=== PATIENT | male | born 1975 | race Caucasian/White ===

== ENCOUNTER 2021-02-22 16:07 | Inpatient (IN) | payer BC, SELFPAY ==
[2021-02-22] VITALS (10 sets, daily range): BP systolic 103–121; BP diastolic 59–77; PULSE 69–87; RESP 20–28; TEMP 36.6–39.4; O2SAT 93–97; BMI 33.3
--- NOTE | ~2021-02-22 | XR_ITS ---
EXAMINATION: XR chest 1V portable EXAM DATE: 02/22/2021 17:39 INDICATION: SOB, fever, chills, cough. TECHNIQUE: Frontal and lateral projections of the chest obtained and reviewed. There is no prior rose dy for comparison. FINDINGS: There is ill-defined multifocal airspace disease most consistent with pneumonia. [facility], recommend testing. No pneumothorax or pleural effusion. The card iomediastinal silhouette is prominent but magnified on this AP technique. IMPRESSION: Moderate amount of bilateral pneumonia, could be COVID 19. Reviewed, dictated and finalized at location A. RFACE CONTROL OFFICER
--- NOTE | ~2021-02-22 | US_ITS ---
EXAMINATION: US abdomen limited DATE: 02/23/2021 12:12 INDICATION: Abnormal liver function tests TECHNIQUE: Multiple grayscale and Doppler ultrasound images of the abdomen were obtained. COMPARISON: None available FINDINGS: The head and body of the pancreas are normal. The pancreatic tail is obscured by bowel gas. The liver demonstrates increased echogenicity, heterogenous echotexture, and decreased through trans mission. No surface nodularity. Normal hepatopetal flow in the main portal vein. The gallbladder is n ormal with no abnormal wall thickening, pericholecystic fluid or stones. The normal common bile duct measures 6 mm. There was no sonographic Ruiz sign. IMPRESSION: 1. Diffuse hepatic steatosis. Reviewed, dictated and finalized at location B. KEY DRIVER
[2021-02-22] MEDS: SODIUM CHLORIDE 0.9% IV 1,000 ML 150 ML IV CONT (17:06)
[2021-02-22 17:35] LABS: Basophils Percent Auto 0.4 % (0.2-1.2); Eosinophils Percent Auto 0.2 % (0-4.4); Hematocrit 41.7 % (42.0-52.0); Hemoglobin 14.8 g/dL (14.0-18.0); Immature Granulocyte Absolute 0.02 K/mm3 (0.00-0.031); Immature Granulocyte Percent A 0.4 % (0-0.5); Lymphocytes Absolute Auto 1.12 K/mm3 (0.9-3.2); Lymphocytes Percent Auto 20.3 % (18.3-44.2); Mean Corpuscular HGB Conc 35.5 g/dl (32-36); Mean Corpuscular Hemoglobin 32.5 pg (26-34); Mean Corpuscular Volume 91.4 fl (80-100); Mean Platelet Volume 9.8 fl (7.4-10.4); Monocytes Absolute Auto 0.4 K/mm3 (0.1-0.6); Monocytes Percent Auto 7.2 % (2.6-8.5); Neutrophils Percent Auto 71.5 % (45.5-73.1); Platelet Count Result 180 k/mm3 (150-375); Red Blood Count 4.56 M/mm3 (4.6-6.20); Red Cell Distribution Width 12.5 % (11.5-14.5); White Blood Count 5.5 K/mm3 (4.5-10.0)
[2021-02-22 17:47] LABS: Alanine Aminotransferase 102 U/L (4-50); Albumin Level 4.5 g/dL (3.5-5.1); Alkaline Phosphatase 113 U/L (38-126); Anion Gap 10 mmol/L (8-16); Aspartate Amino Transferase 139 U/L (17-59); Bilirubin,Total 0.7 mg/dL (0.2-1.3); Blood Urea Nitrogen 14 mg/dL (9-20); Calcium 8.8 mg/dL (8.4-10.2); Carbon Dioxide 27 mmol/L (22-30); Chloride 100 mmol/L (98-107); Estimated CRCL calculation 106 ml/min; Estimated Glomerular Filt Rate > 60; Glucose 123 mg/dL (65-110); Potassium 4.2 mmol/L (3.4-5.0); Sodium 137 mmol/L (137-145)
--- NOTE | 2021-02-22 18:40 | PC.NURSE ---
Informed Dr. Arias of patient temp of 102.0, he ordered IV Tylenol, he states he will be in the room to visit patient shortly
--- NOTE | 2021-02-22 19:05 | PC.NURSE ---
Informed Summer pt is using urinal at this time to get a urine collection
--- NOTE | 2021-02-22 19:16 | PC.NURSE ---
Pt states that it is okay to update his Zeynep on his condition, , updated Zeynep
--- NOTE | 2021-02-22 19:39 | PM.IMHP ---
H&P: HPI History of Present Illness Date/Time: 02/22/21 19:39 Chief Complaint: Shortness of breath Narrative: This is a 45-year-old male with known significant past medical history, the patient is fully vaccinated for COVID-19. He presented today to the emergency room due to worsening shortness of breath, chills, fevers, loss of taste and smell, poor appetite, productive cough of brownish greenish sputum, generalized malaise, muscles aches and pains, states that has not been able to eat since last . He denies any nausea, vomiting, diarrhea, abdominal pain. Preliminary workup has been significant for chest x-ray with diffuse infiltrates. A COVID-19 PCR is pending at this time. Patient has been admitted for further evaluation, management and treatment. Review of Systems Review of Systems: Chills, fever ,shortness of breath, productive cough, muscle aches and pains, poor appetite generalized malaise. Constitutional: Constitutional: Reports chills, Reports fever(s), Reports malaise, Reports night sweats, Reports poor appetite and Reports weakness Eyes: Eyes: Denies change in vision ENT: Denies dysphagia, Denies vertigo, Denies dizziness, Denies nasal congestion, Denies nasal discharge, Denies nasal obstruction and Denies odynophagia Cardiovascular: Cardiovascular: Denies pedal edema, Denies irregular heart rhythm, Denies claudication, Denies leg edema, Denies lightheadedness, Denies radiating jaw, neck or arm pain, Denies palpitations, Denies dyspnea on exertion and Denies orthopnea Respiratory: Respiratory: Reports chest congestion, Reports cough, Reports excessive phlegm production and Reports dyspnea Gastrointestinal: Gastrointestinal: Denies abdominal pain, Denies dyspepsia, Denies heartburn, Denies nausea and Denies hematemesis Genitourinary: Genitourinary: Reports no additional male genitourinary complaints and Reports as per HPI Musculoskeletal: Musculoskeletal: Reports myalgias Integumentary/Breasts: Skin/Breast: Denies rash and Denies wounds Neurologic: Denies vertigo, Denies dizziness, Denies focal weakness and Denies Sensory deficit (Neuro) Psychiatric: Psychiatric: Reports no additional psychiatric complaints and Reports as per HPI Endocrine: Endocrine: Reports no additional endocrine complaints and Reports as per HPI Hematologic/Lymphatic: Hematologic/Lymphatic: Reports no additional hematologic/lymphatic complaints and Reports as per HPI Allergic/Immunologic: Allergic/Immunologic: Reports no additional allergic/immunologic complaints and Reports as per HPI [facility] Social History Social History Smoking status: Never smoker Alcohol intake: unknown Substance use: never Spiritual care concerns: No Meds Home Medications and Allergies Home Medications Medication Instructions Recorded Confirmed Type No Home Medications 02/23/21 02/23/21 History Allergies Allergy/AdvReac Type Severity Reaction Status Date / Time Penicillins Allergy Unknown Verified 02/22/21 16:52 Vital Signs Vital Signs - 24 hr 02/22/21 16:16 02/22/21 16:21 02/22/21 16:23 Temperature 102.5 F H Pulse Rate 86 87 Respiratory Rate 20 20 Blood Pressure 112/68 112/68 Pulse Oximetry 94 95 96 02/22/21 18:40 Temperature 103 F H Pulse Rate Respiratory Rate Blood Pressure Pulse Oximetry Exam Narrative: L[facility] in [facility] Const: General: cooperative, comfortable, no acute distress, well developed, alert, awake and ill appearing Nutritional Appearance: average body habitus Orientation/consciousness: patient oriented x3 HENMT: Head: normal to inspection, normocephalic and atraumatic Ears: hearing grossly normal bilaterally General nose exam: Normal external nose present Face and sinus: normal facial exam Mouth: Yes Normal oral and palatal mucosa present Eyes: General: appearance normal, both eyes and all related structures Alignment and Position:
--- NOTE | 2021-02-22 19:40 | ED.GENADULT ---
HPI - General Adult General Chief complaint: Shortness of Breath/Dyspnea Stated complaint: weakness, covid symptoms Time Seen by Provider: 02/22/21 16:16 Source: patient Mode of arrival: ambulatory Limitations: no limitations History of Present Illness HPI narrative: 45-year-old with no major medical problems here with complaints of cough, fever, and loss of appetite and taste for last 4 to 5 days. Today states that he is feeling extremely weak and short of breath. He states his cough is productive mostly mucoid in nature. He denies any nausea or vomiting. He states that he has been vaccinated 4 months ago Onset (ago): day(s) (5) Severity: moderate Pain Consistency: constant Exacerbating factors: none Associated symptoms: cough, fever/chills, loss of appetite, malaise and weakness Treatments prior to arrival: none Related Data Allergies Allergy/AdvReac Type Severity Reaction Status Date / Time Penicillins Allergy Unknown Verified 02/22/21 16:52 Review of Systems Review of Systems: All systems reviewed & are unremarkable except as noted in HPI and below Constitutional: Constitutional: Reports body ache(s), Reports chills and Reports poor appetite Eyes: Eyes: Reports no additional eye complaints Cardiovascular: Cardiovascular: Reports no additional cardiovascular complaints Respiratory: Respiratory: Reports as per HPI Gastrointestinal: Gastrointestinal: Reports no additional gastrointestinal complaints Musculoskeletal: Musculoskeletal: Reports no additional musculoskeletal complaints Integumentary/Breasts: Skin/Breast: Reports system reviewed and no additional complaints, except as docu Exam Narrative: GENERAL: Well-appearing, well-nourished, febrile HEAD: Normocephalic, atraumatic. EYES: PERRLA and EOMI.. NECK: Supple. CHEST: Clear to auscultation. No respiratory distress. HEART: Regular rate and rhythm. No murmur heard. Normal peripheral pulses. ABDOMEN: Soft, nontender, nondistended, normal active bowel sounds. EXTREMITIES: Normal range of motion. No edema. SKIN: Warm, dry, no rash. NEURO: No focal deficits. Alert and oriented x3. PSYCH: Normal mood and affect. Course Course Emergency Course: Inform patient about his lab work, chest x-ray findings. We will admit him to the hospital start him on IV remdesivir. Discussed with the hospitalist agreed to admit the patient and agreed with the plan. Vital Signs Vital signs: Vital Signs Pulse Rate 86 02/22/21 16:16 Respiratory Rate 20 02/22/21 16:16 Blood Pressure 112/68 02/22/21 16:16 Pulse Oximetry 94 02/22/21 16:16 Temperature 39.4 C H 02/22/21 18:40 Pulse Rate 87 02/22/21 16:21 Respiratory Rate 20 02/22/21 16:21 Blood Pressure 112/68 02/22/21 16:21 Pulse Oximetry 96 02/22/21 16:23 Medical Decision Making Vital Signs Vital Signs: Vital Signs Pulse Rate 86 02/22/21 16:16 Respiratory Rate 20 02/22/21 16:16 Blood Pressure 112/68 02/22/21 16:16 Pulse Oximetry 94 02/22/21 16:16 Temperature 39.4 C H 02/22/21 18:40 Pulse Rate 87 02/22/21 16:21 Respiratory Rate 20 02/22/21 16:21 Blood Pressure 112/68 02/22/21 16:21 Pulse Oximetry 96 02/22/21 16:23 Lab Data Result diagrams: 02/22/21 17:29 02/22/21 17:29 Labs: Lab Results 02/22/21 02/22/21 02/22/21 Range/Units 17:29 17:29 19:22 WBC 5.5 (4.5-10.0) K/mm3 RBC 4.56 L (4.6-6.20) M/mm3 Hgb 14.8 (14.0-18.0) g/dL Hct 41.7 L (42.0-52.0) % MCV 91.4 (80-100) fl MCH 32.5 (26-34) pg MCHC 35.5 (32-36) g/dl RDW 12.5 (11.5-14.5) % Plt Count 180 (150-375) k/mm3 MPV 9.8 (7.4-10.4) fl Immature Gran % (Auto) 0.4 (0-0.5) % Neut % (Auto) 71.5 (45.5-73.1) % Lymph % (Auto) 20.3 (18.3-44.2) % Lewis % (Auto) 7.2 (2.6-8.5) % Eos % (Auto) 0.2 (0-4.4) % Baso % (Auto) 0.4 (0.2-1.2) % Lymph # (Auto) 1.12 (0.9-3.2) K/mm3 Lewis # (Auto) 0.4
[2021-02-22 19:50] LABS: Add Urine Microscopic? YES; Appearance Urine Cloudy (Clear); Bacteria Urine Trace /hpf; Bilirubin Urine Negative (Negative); Blood Urine Negative (Negative); Color Urine Yellow (Yellow); Glucose Urine UA Negative (Negative); Ketones Urine Trace mg/dL (Negative); Leukocyte Esterase Ur 1+ LEU/UL (Negative); Mucus Urine Rare /lpf; Nitrate Urine Negative (Negative); Protein Urine 1+ mg/dL (Negative); RBC Urine 0-2 /hpf (0-2); Specific Grav Ur 1.024 (1.001-1.035); Squamous Epithelial Cell Urine Rare /hpf (Few)
[2021-02-22 20:14] LABS: EDCOVIDSCREEN Negative (Negative)
[2021-02-22 20:20] LABS: INR 1.1; Prothrombin Time 13.7 Seconds (11.1-14.7)
[2021-02-22 20:36] LABS: Alanine Aminotransferase 91 U/L (4-50); Estimated CRCL calculation 117 ml/min; Estimated Glomerular Filt Rate > 60
--- NOTE | 2021-02-22 21:56 | PC.NURSE ---
Unit unable to take report at this time. Unit to call ED back to take report.
--- NOTE | 2021-02-22 23:47 | PC.NURSE ---
Called Dr. Villalobos at [phone] no answer. Called Marisa Govea and spoke with her about clarifications needed on patient. Marisa Govea said she will relay the message to Dr. Villalobos. Waiting for Dr. Villalobos to call unit back.
[2021-02-23] VITALS (7 sets, daily range): BP systolic 104–140; BP diastolic 52–69; PULSE 54–76; RESP 18–22; TEMP 36.1–36.9; O2SAT 95–98; BMI 33.5
[2021-02-23] MEDS: ALBUTEROL SULFATE (*SP) INHALER 2 PUFF INHALATION ×6 (00:12→20:27)
[2021-02-23] MEDS: ACETAMINOPHEN 325 MG TABLET 650 MG PO ×2 (00:29→20:55)
[2021-02-23] MEDS: ENOXAPARIN 40 MG/0.4 ML SYRINGE SUB-Q ×3 (00:32→20:47)
[2021-02-23] MEDS: REMDESIVIR 200 MG/NS 250 ML 200 MG/250 ML BAG 250 MG IVPB (00:45)
[2021-02-23 02:13] LABS: Basophils Percent Auto 0.2 % (0.2-1.2); Hemoglobin 15.2 g/dL (14.0-18.0); Immature Granulocyte Absolute 0.02 K/mm3 (0.00-0.031); Immature Granulocyte Percent A 0.3 % (0-0.5); Lymphocytes Absolute Auto 1.02 K/mm3 (0.9-3.2); Lymphocytes Percent Auto 17.8 % (18.3-44.2); Mean Corpuscular HGB Conc 35.3 g/dl (32-36); Mean Corpuscular Hemoglobin 32.5 pg (26-34); Mean Corpuscular Volume 92.1 fl (80-100); Mean Platelet Volume 9.7 fl (7.4-10.4); Monocytes Absolute Auto 0.3 K/mm3 (0.1-0.6); Monocytes Percent Auto 5.1 % (2.6-8.5); Neutrophils Absolute Auto 4.4 K/mm3 (1.3-6.7); Neutrophils Percent Auto 76.6 % (45.5-73.1); Platelet Count Result 178 k/mm3 (150-375); Red Blood Count 4.67 M/mm3 (4.6-6.20); Red Cell Distribution Width 12.5 % (11.5-14.5); White Blood Count 5.7 K/mm3 (4.5-10.0)
--- NOTE | 2021-02-23 02:17 | PC.NURSE ---
This patient, Jeevan Pena, was admitted to 3 [facility] Surg Room 319-01. Patient/family oriented to hospital policies and general routines including ID bracelet, bed and alarms, visiting hours, pain management, procedures, bathroom and other care routines, personal items, smoking policy, room service/diet, and visiting hours. Information on how to activate the Rapid Response Team has been discussed. Patient/Family are encouraged to report perceived risks to care and to ask questions if they do not understand what they are told or what they should do.
[2021-02-23 02:23] LABS: INR 1.1; Prothrombin Time 13.9 Seconds (11.1-14.7)
[2021-02-23 02:33] LABS: Alanine Aminotransferase 91 U/L (4-50); Albumin Level 4.4 g/dL (3.5-5.1); Alkaline Phosphatase 110 U/L (38-126); Anion Gap 12 mmol/L (8-16); Aspartate Amino Transferase 118 U/L (17-59); Bilirubin,Total 0.8 mg/dL (0.2-1.3); Blood Urea Nitrogen 14 mg/dL (9-20); Calcium 8.8 mg/dL (8.4-10.2); Carbon Dioxide 25 mmol/L (22-30); Chloride 102 mmol/L (98-107); Estimated CRCL calculation 131 ml/min; Estimated Glomerular Filt Rate > 60; Glucose 191 mg/dL (65-110); Potassium 4.1 mmol/L (3.4-5.0); Sodium 139 mmol/L (137-145)
[2021-02-23 03:13] LABS: HIV 1/2 Ab P24 Ag Result Negative (Negative)
[2021-02-23 03:32] LABS: Hepatitis B Surface Anti Res Negative; Hepatitis C Virus Antibody Negative (Negative)
--- NOTE | 2021-02-23 06:25 | PC.NURSE ---
Called Dr Villalobos again and spoke to her regarding clarifications with covid plasma. Called lab to prepare covid plasma at 0400. Lab stated it would be awhile.
--- NOTE | 2021-02-23 10:14 | PC.NURSE ---
Spoke with Ryanne provider for patient, holding covid plasma infusion until covid test results. Provide to meet with pt and discuss covid plasma infusion in more detail and answer questions and concerns.
--- NOTE | 2021-02-23 13:00 | PM.IMPN ---
Progress Note: A&P Assessment and Plan (1) Acute respiratory failure with hypoxia: Code(s): J96.01 - Acute respiratory failure with hypoxia Status: Acute Assessment and Plan: Hypoxic on presentation requiring supplemental oxygen. Currently requiring 3 L per nasal cannula. Continue supplemental O2 as needed with goal sats 92% or above Likely secondary to COVID-19. Plan as below (2) Person under investigation for COVID-19: Code(s): Z20.822 - Contact with and (suspected) exposure to COVID-19 Status: Acute Assessment and Plan: CXR shows moderate amount of bilateral pneumonia, consistent with COVID-19. He was febrile up to 103?. COVID-19 test pending. Continue isolation precautions while awaiting results He has been started on dexamethasone and remdesivir. Continue at this time Convalescent plasma was ordered, however will wait for results prior to administration. Given relatively stable oxygen requirements, this can be deferred at this time. Supplemental O2 as needed Supportive care to include bronchodilators, expectorants, antipyretics, incentive spirometry Trend inflammatory markers He did complete Pier[employer] Pier[employer] vaccination approximately 3 months ago. Bacterial pneumonia is considered, the clinical picture more consistent with viral etiology. Would consider addition of antibiotic therapy pending results of COVID-19 test. Will also check for influenza (3) Elevated LFTs: Code(s): R79.89 - Other specified abnormal findings of blood chemistry Status: Acute Assessment and Plan: LFTs slightly elevated on presentation with slight improvement today Likely in part due to viral illness Abdominal ultrasound demonstrates diffuse hepatic steatosis. Lifestyle changes. Subjective Date/time seen: 02/23/21 13:00 Interval history: Date of service: 02/23/2021 Jeevan Pena is a healthy 45-year-old male who denies any past medical history who is seen in follow-up for suspected COVID-19. He is feeling very poorly today. Any movements cause him to have a coughing spell. He is not able to walk from the bed to the chair without becoming significantly short of breath and having a coughing fit. He states that if he lays on his right side his cough will diminish somewhat but he cannot lay flat on his back. He is occasionally having scant amount of yellow-green sputum. He has all over body aches. He has poor appetite and reports he has not had much to eat over the past week. He endorses chills and sweats. He also has a headache. Denies dizziness or lightheadedness. Denies dysuria or hematuria. Denies chest pain or palpitations. Review of Systems Review of Systems: All systems reviewed & are unremarkable except as noted in HPI and below Exam Narrative: Mr. Pena is a well-nourished, well-appearing 45-year-old male who is lying on his right side. He appears comfortable and is in NARD. Neuro: awake, alert and oriented x4, speech clear, no focal neuro deficits noted HEENMT: normocephalic, atraumatic, EOMI, sclerae anicteric Neck: supple, no lymphadenopathy Respiratory: Diminished breath sounds bilaterally, persistent hacking cough with inspiration Cardio: regular rate, regular rhythm with S1-S2 Abdomen: nondistended, normoactive bowel sounds, soft, slightly tender to palpation in periumbilical region Extremities: no edema, erythema, or tenderness to palpation, DP pulses 2+ bilaterally Skin: no rashes or lesions, warm and dry Psych: appropriate mood and affect, judgment and insight intact Objective Data Vital Signs Vital Signs: Vital Signs - 24 hr 02/22/21 16:16 02/22/21 16:21 02/22/21 16:23 Temperature 102.5 F H Pulse Rate 86 87 Respiratory Rate 20 20 Blood Pressure 112/68 112/68 Pulse Oximetry 94 95 96 02/22/21 18:40 02/22/21 19:24 02/22/21 20:42 Temperature 103 F H Pulse Rate 85 76 Respiratory Rate 24 H 28 H Blood Pressure
[2021-02-23] MEDS: BENZONATATE 100 MG CAPSULE PO (16:04)
[2021-02-23 17:50] LABS: SARS-CoV-2 RNA PCR Positive
[2021-02-23] MEDS: guaiFENesin 12 HR 600 MG TABCR PO (20:47)
[2021-02-23] MEDS: REMDESIVIR 100 MG/NS 250 ML 100 MG/250 ML BAG 250 MG IVPB (20:56)
[2021-02-24] VITALS (17 sets, daily range): BP systolic 90–122; BP diastolic 51–73; PULSE 52–118; RESP 14–20; TEMP 36.2–37; O2SAT 95–99
[2021-02-24] MEDS: ALBUTEROL SULFATE (*SP) INHALER 2 PUFF INHALATION ×6 (00:06→20:23)
[2021-02-24] MEDS: SODIUM CHLORIDE 0.9% IV 250 ML 30 ML IV CONT (06:00)
[2021-02-24] MEDS: TUBING, BLOOD PLUM PUMP TUBING 1 EACH XX (06:00)
[2021-02-24 06:23] LABS: Hematocrit 41.3 % (42.0-52.0); Hemoglobin 14.3 g/dL (14.0-18.0); Mean Corpuscular HGB Conc 34.6 g/dl (32-36); Mean Corpuscular Hemoglobin 32.6 pg (26-34); Mean Corpuscular Volume 94.3 fl (80-100); Mean Platelet Volume 10.4 fl (7.4-10.4); Platelet Count Result 195 k/mm3 (150-375); Red Blood Count 4.38 M/mm3 (4.6-6.20); Red Cell Distribution Width 12.2 % (11.5-14.5); White Blood Count 9.2 K/mm3 (4.5-10.0)
[2021-02-24 06:48] LABS: Alanine Aminotransferase 64 U/L (4-50); Albumin Level 4.1 g/dL (3.5-5.1); Alkaline Phosphatase 88 U/L (38-126); Anion Gap 10 mmol/L (8-16); Aspartate Amino Transferase 69 U/L (17-59); Bilirubin,Total 0.6 mg/dL (0.2-1.3); Blood Urea Nitrogen 18 mg/dL (9-20); CRP 4.1 mg/dL (<1.0); Calcium 8.8 mg/dL (8.4-10.2); Carbon Dioxide 26 mmol/L (22-30); Chloride 106 mmol/L (98-107); Estimated CRCL calculation 131 ml/min; Estimated Glomerular Filt Rate > 60; Glucose 157 mg/dL (65-110); Lactate Dehydrogenase 529 U/L (313-618); Potassium 4.8 mmol/L (3.4-5.0); Sodium 142 mmol/L (137-145)
[2021-02-24 08:12] LABS: INR 1.1; Prothrombin Time 13.7 Seconds (11.1-14.7)
[2021-02-24] MEDS: guaiFENesin 12 HR 600 MG TABCR PO ×2 (09:00→21:45)
[2021-02-24] MEDS: ENOXAPARIN 40 MG/0.4 ML SYRINGE SUB-Q ×2 (09:00→21:45)
[2021-02-24] MEDS: BENZONATATE 100 MG CAPSULE PO ×2 (09:00→12:55)
--- NOTE | 2021-02-24 13:27 | PM.IMPN ---
Progress Note: A&P Assessment and Plan (1) Acute respiratory failure due to COVID-19: Code(s): U07.1 - COVID-19; J96.00 - Acute respiratory failure, unspecified whether with hypoxia or hypercapnia Status: Acute Assessment and Plan: Positive COVID test on 02/22/2021. CXR showed bilateral pneumonia. He was hypoxic on presentation requiring up to 3 L supplemental oxygen. Febrile on presentation up to 103?, fever resolved. Currently maintaining adequate O2 sats on room air. Continue supplemental O2 as needed with goal sats 92% or above. Continue dexamethasone and remdesivir. Received convalescent plasma this morning. Supportive care to include bronchodilators, expectorants, antipyretics, incentive spirometry, cornet Trend inflammatory markers Continue isolation precautions He did complete Piero & Piero vaccine approximately 3 months ago. (2) Elevated LFTs: Code(s): R79.89 - Other specified abnormal findings of blood chemistry Status: Acute Assessment and Plan: LFTs slightly elevated on presentation with continued improvement. Most likely secondary to viral illness. Hepatitis screening negative. Abdominal ultrasound showed diffuse hepatic steatosis and life changes should be implemented. Continue to monitor LFT while on remdesivir. Subjective Date/time seen: 02/24/21 13:27 Interval history: Date of service: 02/24/2021 Jeevan Pena is a healthy 45-year-old male who denies any past medical history who is seen in follow-up for COVID-19. He is feeling about the same today, maybe slightly better. He still has persistent cough but he states if he lays flat it improves. He has dyspnea on exertion and today when getting up to walk to the bathroom it triggered a significant coughing spell. He notes that even trying to talk will cause him to cough. He denies sputum production. He has chest wall and abdominal soreness as a result of his cough. He also has all over body aches. His appetite seems to be slowly improving. He had nausea this morning but no vomiting. N/V resolved now and he was able to tolerate his breakfast. He endorses sweats but denies fever or chills. Review of Systems Review of Systems: All systems reviewed & are unremarkable except as noted in HPI and below Exam Narrative: Mr. Pena is a well-nourished, well-appearing 45-year-old male who is lying on his left side. He appears comfortable and is in NARD. Neuro: awake, alert and oriented x4, speech clear, no focal neuro deficits noted HEENMT: normocephalic, atraumatic, EOMI, sclerae anicteric Neck: supple, no lymphadenopathy Respiratory: Diminished breath sounds bilaterally, persistent barking cough Cardio: regular rate, regular rhythm with S1-S2 Abdomen: nondistended, normoactive bowel sounds, soft, nontender to palpation Extremities: no edema, erythema, or tenderness to palpation, DP pulses 2+ bilaterally Skin: no rashes or lesions, warm and dry Psych: appropriate mood and affect, judgment and insight intact Objective Data Vital Signs Vital Signs: Vital Signs - 24 hr 02/23/21 16:00 02/23/21 20:00 02/23/21 20:32 Temperature 97.4 F L 98.0 F Pulse Rate 76 66 Respiratory Rate 18 18 Blood Pressure 140/67 117/56 L Pulse Oximetry 97 96 95 02/24/21 00:00 02/24/21 04:00 02/24/21 06:00 Temperature 97.2 F L 97.2 F L 98.1 F Pulse Rate 59 L 53 L 60 Respiratory Rate 18 18 20 Blood Pressure 100/56 L 99/66 L 90/70 L Pulse Oximetry 97 95 97 02/24/21 06:19 02/24/21 07:16 02/24/21 07:19 Temperature 98.2 F 97.8 F 97.9 F Pulse Rate 57 L 55 L 52 L Respiratory Rate 14 14 20 Blood Pressure 106/59 L 105/68 100/59 L Pulse Oximetry 97 98 95 02/24/21 08:00 02/24/21 08:19 02/24/21 08:33 Temperature 98.1 F Pulse Rate 54 L 56 L Respiratory Rate 16 20 Blood Pressure 112/57 L Pulse Oximetry 98 99 96 02/24/21 08:41 02/24/21 08:52 02/24/21 12:23 Temperature 98.4 F 98.0 F 97.3 F L Pulse Rate 56
[2021-02-24] MEDS: REMDESIVIR 100 MG/NS 250 ML 100 MG/250 ML BAG 250 MG IVPB (21:45)
[2021-02-24] MEDS: FAMOTIDINE 20 MG TABLET PO (21:45)
[2021-02-24 22:00] LABS: Glucose Point of Care 237 mg/dl (65-105)
[2021-02-25] VITALS (8 sets, daily range): BP systolic 102–130; BP diastolic 56–73; PULSE 47–65; RESP 15–20; TEMP 35.8–36.9; O2SAT 96–98
[2021-02-25] MEDS: ALBUTEROL SULFATE (*SP) INHALER 2 PUFF INHALATION ×6 (04:01→20:11)
[2021-02-25 06:34] LABS: Hematocrit 40.8 % (42.0-52.0); Hemoglobin 14.3 g/dL (14.0-18.0); Mean Corpuscular Hemoglobin 33.3 pg (26-34); Mean Corpuscular Volume 94.9 fl (80-100); Mean Platelet Volume 10.6 fl (7.4-10.4); Platelet Count Result 227 k/mm3 (150-375); Red Cell Distribution Width 12.5 % (11.5-14.5); White Blood Count 8.9 K/mm3 (4.5-10.0)
[2021-02-25 06:45] LABS: Alanine Aminotransferase 52 U/L (4-50); Albumin Level 4.1 g/dL (3.5-5.1); Alkaline Phosphatase 88 U/L (38-126); Anion Gap 9 mmol/L (8-16); Aspartate Amino Transferase 49 U/L (17-59); Bilirubin,Total 0.5 mg/dL (0.2-1.3); Blood Urea Nitrogen 16 mg/dL (9-20); CRP 1.7 mg/dL (<1.0); Calcium 8.7 mg/dL (8.4-10.2); Carbon Dioxide 26 mmol/L (22-30); Chloride 108 mmol/L (98-107); Estimated CRCL calculation 148 ml/min; Estimated Glomerular Filt Rate > 60; Glucose 152 mg/dL (65-110); Potassium 4.2 mmol/L (3.4-5.0); Sodium 143 mmol/L (137-145)
[2021-02-25 06:49] LABS: Alanine Aminotransferase 51 U/L (4-50); Estimated CRCL calculation 148 ml/min; Estimated Glomerular Filt Rate > 60
[2021-02-25 06:53] LABS: INR 1.2; Prothrombin Time 14.6 Seconds (11.1-14.7)
[2021-02-25] MEDS: ENOXAPARIN 40 MG/0.4 ML SYRINGE SUB-Q ×2 (08:50→20:07)
[2021-02-25] MEDS: guaiFENesin 12 HR 600 MG TABCR PO ×2 (08:51→20:07)
[2021-02-25] MEDS: FAMOTIDINE 20 MG TABLET PO ×2 (08:51→20:07)
--- NOTE | 2021-02-25 13:21 | PM.IMPN ---
Progress Note: A&P Assessment and Plan (1) Acute respiratory failure due to COVID-19: Code(s): U07.1 - COVID-19; J96.00 - Acute respiratory failure, unspecified whether with hypoxia or hypercapnia Status: Acute Assessment and Plan: Positive COVID test on 02/22/2021. CXR showed bilateral pneumonia. He was hypoxic on presentation requiring up to 3 L supplemental oxygen. Febrile on presentation up to 103?, fever resolved. Currently maintaining adequate O2 sats on room air. Supplemental O2 as needed with goal sats 92% or above. Continue dexamethasone and remdesivir (day #3) Received convalescent plasma 02/24/21 Supportive care to include bronchodilators, expectorants, antipyretics, incentive spirometry, cornet Trend inflammatory markers Continue isolation precautions He did complete Piero & Piero vaccine approximately 3 months ago. (2) Elevated LFTs: Code(s): R79.89 - Other specified abnormal findings of blood chemistry Status: Acute Assessment and Plan: LFTs slightly elevated on presentation with continued improvement. Most likely secondary to viral illness. Hepatitis screening negative. Abdominal ultrasound showed diffuse hepatic steatosis and life changes should be implemented. Continue to monitor LFT while on remdesivir. (3) Constipation: Code(s): K59.00 - Constipation, unspecified Status: Acute Assessment and Plan: Reports no bowel movement in 6 days Initiate MiraLax and Colace. Consider Dulcolax suppository if still not able to have a bowel movement with above therapy Subjective Date/time seen: 02/25/21 13:21 Interval history: Date of service: 02/25/2021 Jeevan Pena is a healthy 45-year-old male who denies any past medical history who is seen in follow-up for COVID-19. Still feeling quite poorly. He is still coughing frequently. He had a major coughing spell when walking to the bathroom today, he states sitting up, talking, or moving at all will cause him to cough forcefully. He also endorses shortness of breath and dyspnea on exertion. Also endorses some chest tightness when he coughs. He feels weak all over, especially in his calves. He endorses a left lower quadrant discomfort that he describes as a dull ache. He has not had a bowel movement in 6 days. He denies bloating or cramping. He has been starting to eat a little better. Denies nausea or vomiting. Denies overt fevers or chills but notes feeling very cold and also having sweats. The patient is from [place]. 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 He is concerned about how he will get back. He does not feel strong enough to make the drive. He cannot fly, and would not be able to do so due to his need for quarantine. Review of Systems Review of Systems: All systems reviewed & are unremarkable except as noted in HPI and below Exam Narrative: Mr. Pena is a well-nourished, well-appearing 45-year-old male who is lying supine in bed. He appears comfortable and is in NARD. Neuro: awake, alert and oriented x4, speech clear, no focal neuro deficits noted HEENMT: normocephalic, atraumatic, EOMI, sclerae anicteric Neck: supple, no lymphadenopathy Respiratory: Diminished breath sounds bilaterally, cough with sitting up and with inspirations Cardio: regular rate, regular rhythm with S1-S2 Abdomen: nondistended, normoactive bowel sounds, soft, nontender to palpation Extremities: no edema, erythema, or tenderness to palpation, DP pulses 2+ bilaterally Skin: no rashes or lesions, warm and damp Psych: appropriate mood and affect, judgment and insight intact Objective Data Vital Signs Vital Signs: Vital Signs - 24 hr 02/24/21 15:45 02/24/21 17:04 02/24/21 20:00 Temperature 97.6 F 98.6 F Pulse Rate 79 63 118 H Respiratory Rate 18 18 20 Blood Pressure 122/73 116/64 Pulse Oximetry 95 97 02/24/21 21:18 02/25/21 00:01 02/25/21
[2021-02-25] MEDS: DOCUSATE SODIUM 100 MG CAPSULE PO (20:07)
[2021-02-25] MEDS: REMDESIVIR 100 MG/NS 250 ML 100 MG/250 ML BAG 250 MG IVPB (21:59)
[2021-02-26] VITALS (7 sets, daily range): BP systolic 108–122; BP diastolic 57–78; PULSE 50–92; RESP 18–20; TEMP 35.6–36.3; O2SAT 96–99
[2021-02-26] MEDS: ALBUTEROL SULFATE (*SP) INHALER 2 PUFF INHALATION ×6 (04:00→20:10)
[2021-02-26 06:35] LABS: Alanine Aminotransferase 58 U/L (4-50); Albumin Level 4.3 g/dL (3.5-5.1); Alkaline Phosphatase 90 U/L (38-126); Anion Gap 11 mmol/L (8-16); Aspartate Amino Transferase 53 U/L (17-59); Bilirubin,Total 0.6 mg/dL (0.2-1.3); Blood Urea Nitrogen 18 mg/dL (9-20); Calcium 9.1 mg/dL (8.4-10.2); Carbon Dioxide 27 mmol/L (22-30); Chloride 104 mmol/L (98-107); Estimated CRCL calculation 131 ml/min; Estimated Glomerular Filt Rate > 60; Glucose 183 mg/dL (65-110); Potassium 4.7 mmol/L (3.4-5.0); Sodium 142 mmol/L (137-145)
[2021-02-26 07:02] LABS: Hematocrit 42.4 % (42.0-52.0); Hemoglobin 14.5 g/dL (14.0-18.0); Mean Corpuscular HGB Conc 34.2 g/dl (32-36); Mean Corpuscular Volume 96.4 fl (80-100); Mean Platelet Volume 10.7 fl (7.4-10.4); Platelet Count Result 247 k/mm3 (150-375); Red Cell Distribution Width 12.5 % (11.5-14.5); White Blood Count 9.8 K/mm3 (4.5-10.0)
[2021-02-26 07:46] LABS: INR 1.1; Prothrombin Time 14.3 Seconds (11.1-14.7)
[2021-02-26] MEDS: ENOXAPARIN 40 MG/0.4 ML SYRINGE SUB-Q ×2 (08:57→20:45)
[2021-02-26] MEDS: FAMOTIDINE 20 MG TABLET PO (08:58)
[2021-02-26] MEDS: guaiFENesin 12 HR 600 MG TABCR PO ×2 (08:58→20:45)
--- NOTE | 2021-02-26 12:22 | PM.IMPN ---
Progress Note: A&P Assessment and Plan (1) Acute respiratory failure due to COVID-19: Code(s): U07.1 - COVID-19; J96.00 - Acute respiratory failure, unspecified whether with hypoxia or hypercapnia Status: Acute Assessment and Plan: Positive COVID test on 02/22/2021. CXR showed bilateral pneumonia. He was hypoxic on presentation requiring up to 3 L supplemental oxygen. Febrile on presentation up to 103?, fever resolved. Currently maintaining adequate O2 sats on room air. Supplemental O2 as needed with goal sats 92% or above. Continue dexamethasone and remdesivir (day #4) Received convalescent plasma 02/24/21 Supportive care to include bronchodilators, expectorants, antipyretics, incentive spirometry, cornet Trend inflammatory markers Continue isolation precautions He did complete Piero & Piero vaccine approximately 3 months ago. Hopeful discharge tomorrow if continued improvement. 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 Most likely secondary to viral illness. Hepatitis screening negative. Abdominal ultrasound showed diffuse hepatic steatosis and life changes should be implemented. Continue to monitor LFT while on remdesivir. Resolving. (3) Constipation: Code(s): K59.00 - Constipation, unspecified Status: Acute Assessment and Plan: Resolved. He had a bowel movement yesterday. Continue MiraLax and Colace as needed. Subjective Date/time seen: 02/26/21 12:22 Interval history: Date of service: 02/26/2021 Jeevan Pena is a healthy 45-year-old male who denies any past medical history who is seen in follow-up for COVID-19. Starting to feel a bit better today. He is coughing less frequently. He has been able to walk around his room with less dyspnea on exertion and not coughing as much. Still having difficulty taking deep breaths. Still coughs deep inspiration and with certain movements. Cough is nonproductive. His body aches have improved slightly. He still feels overall weak. His appetite is improving. He had a bowel movement yesterday and notes that his abdominal discomfort was alleviated with this. Previously endorsed chills but notes this has resolved today. Denies nausea, vomiting, fever, dizziness, lightheadedness. No chest pain. No palpitations. I did talk to him about his plans for discharge given that he is starting to feel somewhat better. He states that he plans to drive from here to [place], [place] where he can stop and see how he is feeling. He states that if he is still feeling poorly, he may be able to see a company doctor in the area but needs to discuss this with his employer first. He also notes that he could stop ear and get a hotel and take some time to recover if required. He is still nervous for how he will manage his symptoms during his travels. He is certain that he would not be able to make the trip back to [place] at this time. Review of Systems Review of Systems: All systems reviewed & are unremarkable except as noted in HPI and below Exam Narrative: Mr. Pena is a well-nourished, well-appearing 45-year-old male who is lying supine in bed. He appears comfortable and is in NARD. Neuro: awake, alert and oriented x4, speech clear, no focal neuro deficits noted HEENMT: normocephalic, atraumatic, EOMI, sclerae anicteric Neck: supple, no lymphadenopathy Respiratory: Diminished breath sounds bilaterally, barking cough with deep with inspirations Cardio: regular rate, regular rhythm with S1-S2 Abdomen: nondistended, normoactive bowel sounds, soft,
[2021-02-26] MEDS: REMDESIVIR 100 MG/NS 250 ML 100 MG/250 ML BAG 250 MG IVPB (20:45)
[2021-02-27] VITALS (8 sets, daily range): BP systolic 103–110; BP diastolic 54–71; PULSE 43–96; RESP 16–20; TEMP 35.5–36.1; O2SAT 93–98
[2021-02-27] MEDS: ALBUTEROL SULFATE (*SP) INHALER 2 PUFF INHALATION ×4 (00:36→11:45)
[2021-02-27 06:56] LABS: Alanine Aminotransferase 65 U/L (4-50); Albumin Level 4.2 g/dL (3.5-5.1); Alkaline Phosphatase 90 U/L (38-126); Anion Gap 12 mmol/L (8-16); Aspartate Amino Transferase 56 U/L (17-59); Bilirubin,Total 0.7 mg/dL (0.2-1.3); Blood Urea Nitrogen 19 mg/dL (9-20); Calcium 9.1 mg/dL (8.4-10.2); Carbon Dioxide 26 mmol/L (22-30); Chloride 102 mmol/L (98-107); Estimated CRCL calculation 131 ml/min; Estimated Glomerular Filt Rate > 60; Glucose 216 mg/dL (65-110); Potassium 4.6 mmol/L (3.4-5.0); Sodium 140 mmol/L (137-145)
[2021-02-27] MEDS: ENOXAPARIN 40 MG/0.4 ML SYRINGE SUB-Q (09:40)
[2021-02-27] MEDS: FAMOTIDINE 20 MG TABLET PO (09:40)
[2021-02-27] MEDS: guaiFENesin 12 HR 600 MG TABCR PO (09:40)
--- NOTE | 2021-02-27 11:58 | HOMEO2EVAL ---
Evaluation was performed at [facility] Home Oxygen Evaluation RC: Home Oxygen (O2) Evaluation Start: 02/26/21 12:34 Freq: ONCE Status: Active Protocol: RPE Activity Type Activity Date Activity User E-Sign Co-Sign Detail Recorded Client Recorded Date Recorded By Document 02/27/21 11:30 KRM [id number] 02/27/21 11:57 KRM Document 02/27/21 11:32 KRM [email or web address] 02/27/21 11:57 KRM Document 02/27/21 11:35 KRM [email or web address] 02/27/21 11:57 KRM 02/27/21 02/27/21 02/27/21 11:30 11:32 11:35 Home O2 Evaluation Test Phase Resting Exercise Exercise Oxygen Delivery Room Air Room Air Room Air Pulse Oximetry (90-100 %) 93 96 95 Pulse Rate (60-100 beats/min) 70 96 77 Activity Tolerance Good Good Home Oxygen Evaluation Comments NO HOME OXYGEN NEEDED. Treatment Charges O2 Evaluation - Inpatient
--- NOTE | 2021-02-27 14:31 | PM.DS ---
DS: Admitting Diagnosis Discharge Date 02/27/2021 Admitting Diagnosis COVID-19 pneumonia DS: Discharge Diagnosis Discharge Diagnosis (1) Acute respiratory failure due to COVID-19: Code(s): U07.1 - COVID-19; J96.00 - Acute respiratory failure, unspecified whether with hypoxia or hypercapnia Status: Acute Assessment and Plan: Positive COVID test on 02/22/2021. CXR showed bilateral pneumonia. He was hypoxic on presentation requiring up to 3 L supplemental oxygen. Febrile on presentation up to 103?, fever resolved. Supplemental oxygen was able to be weaned and he was maintaining adequate O2 sats on room air. Home O2 eval performed on 02/27/2021 to ensure he did not need supplemental oxygen with exertion; this was completed and demonstrated no need for supplemental oxygen with rest or ambulation. He completed 5 days of IV remdesivir and dexamethasone. Received convalescent plasma 02/24/21 Supportive care provided including bronchodilators, expectorants, antipyretics, incentive spirometry, cornet He did complete Piero & Piero vaccine approximately 3 months ago. (2) Elevated LFTs: Code(s): R79.89 - Other specified abnormal findings of blood chemistry Status: Acute Assessment and Plan: LFTs slightly elevated on presentation with continued improvement. Most likely secondary to viral illness. Hepatitis screening negative. Abdominal ultrasound showed diffuse hepatic steatosis and lifestyle changes should be implemented. ALT remained only mildly elevated. (3) Constipation: Code(s): K59.00 - Constipation, unspecified Status: Acute Assessment and Plan: Resolved. He had a bowel movement on 02/25. Continue MiraLax and Colace as needed. DS: Summary Hospital Course Hospital Course: Date of admission: 02/22/2021 Date of discharge: 02/27/2021 efrain Pena is a healthy 45-year-old male who denies any past medical history presented to the emergency department on 02/22/2021 with complaints of worsening shortness of breath, chills, fever, and loss of taste and smell. On presentation to the emergency department, he was noted to be febrile at 39.4? C additional vital signs stable, CBC and BMP unremarkable, and CXR showed moderate amount of bilateral pneumonia consistent with COVID-19. He was admitted to the hospitalist service for further evaluation and management. Please see above for further details. He was treated him with IV dexamethasone and Remdesivir given his hypoxia. His symptoms improved significantly and hypoxia resolved. Given lack of need for supplemental oxygen and symptomatic improvement, he was determined to no longer require inpatient care and was felt to be stable for discharge. Of note, he lives in [place] and was traveling to this area for work. 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 There was some concern about how he would return back home. He was unable to have anyone from his company worm picker his truck. Following discussions between myself, the patient, and care coordination, it was determined that he would take a cab back to his truck. He will then either stay in his truck at the rest stop which is equipped for overnight stays or check into a hotel, the latter being the preferable option that I encouraged. He is to avoid driving any long distances or driving for work for the next week. He felt comfortable with these plans and with the improvement of his symptoms, he felt comfortable with plans for discharge. I educated him on measures to help slow the spread of COVID-19. He was educated on worrisome signs and symptoms for which to return and on his medications. He knows that if his symptoms worsen, he should seek care immediately in the local area. He needs to establish with a primary care provider on his return to [place]. Given his overall improvement, he was determined to no longer require inpatient care and he was discharged i
== END 2021-02-27 15:19 | disposition home or self-care (01) | DRG 177 ==
LOC: ANHED 19:45 → ANH3MEDSUR 02-23 07:42
PROVIDERS: Admitting Provider Internal Medicine; Emergency Provider Family Medicine; Visit Provider Physician Assistant
DX: U07.1 COVID-19 (principal); J12.82 Pneumonia due to coronavirus disease 2019; J96.01 Acute respiratory failure with hypoxia; R79.89 Other specified abnormal findings of blood chemistry; K59.00 Constipation, unspecified; Z88.0 Allergy status to penicillin
CPT/HCPCS: 36415; 36430; 71045; 76705; 80053; 81001; 82565; 82948; 83615; 84145; 84460; 85025; 85027; 85610; 86140; 86703; 86706; 86803; 86900; 86901; 87040; 87086; 87426; 94618; 94640; 94667; 96361; 96374; 99285; A9270; C9803; G0432; J0131; J0456; J0696; J1100; J1650; J7030; J7050; P9059; U0003; U0005